=== PATIENT | female | born 1985 | race Caucasian/White ===

== ENCOUNTER 2018-11-07 16:58 | Emergency (ER) | payer OTHER | END 2018-11-07 17:29 | disposition home or self-care (01) | LOC: E/R 16:58 | DX: S00.11XA Contusion of right eyelid and periocular area, initial encounter (principal); W50.0XXA Accidental hit or strike by another person, initial encounter; Y92.149 Unspecified place in prison as the place of occurrence of the external cause | CPT/HCPCS: 99282 ==